=== PATIENT | male | born 1995 | race African-American/Black ===

== ENCOUNTER 2022-06-24 06:48 | Emergency (ER) | payer OTHER ==
[2022-06-24 08:02] LABS: SARS-CoV-2 NAA Rapid Test Not Detected (NotDetected)
== END 2022-06-24 07:27 | disposition home or self-care (01) ==
LOC: ERS 06:48
DX: J06.9 Acute upper respiratory infection, unspecified (principal); Z20.822 Contact with and (suspected) exposure to COVID-19
CPT/HCPCS: 99283; U0002

== ENCOUNTER 2022-06-28 01:56 | Emergency (ER) | payer OTHER ==
[2022-06-28] MEDS ORDERED: Ketorolac Tromethamine 30 MG/ML VIAL ONE (02:04)
[2022-06-28] MEDS ORDERED: Acetaminophen 500 MG TAB ONE (02:04)
== END 2022-06-28 07:07 | disposition home or self-care (01) ==
LOC: ERS 01:56
DX: J18.9 Pneumonia, unspecified organism (principal); F17.200 Nicotine dependence, unspecified, uncomplicated
CPT/HCPCS: 71045; 93005; 96374; J1885

== ENCOUNTER 2022-07-09 07:52 | Emergency (ER) | payer OTHER | END 2022-07-09 08:32 | disposition home or self-care (01) | LOC: ERS 07:52 | DX: Z71.1 Person with feared health complaint in whom no diagnosis is made (principal); R53.83 Other fatigue; F17.200 Nicotine dependence, unspecified, uncomplicated | CPT/HCPCS: 99283 ==